=== PATIENT | female | born 1970 | race Caucasian/White ===

== ENCOUNTER 2018-03-07 21:37 | Emergency (ER) | payer OTHER ==
[2018-03-07 21:46] VITALS: RESP 18
[2018-03-07] MEDS ORDERED: PROPARACAINE 0.5% OPHTH DROPS 15 ML BTL RIGHT EYE STA (22:07)
--- NOTE | 2018-03-07 22:49 | ED ---
Eye Problem HPI - General Chief complaint: Eye Problems Stated complaint: eye pain/discharge Time Seen by Provider: 03/07/18 21:57 Source: patient Mode of arrival: ambulatory Limitations: no limitations - History of Present Illness Initial comments: 48-year-old female patient presents to the emergency department today for evaluation of right eye pain and redness. Patient states the pain started approximately 3 hours [place] Patient states that as time went on the pain became worse and she developed redness to the right lateral aspect of the eye. Patient denies getting anything in the eye or any chemical exposure. Patient states he does not feel like foreign body sensation, states it is an aching throbbing pain. Patient denies any history of similar symptoms. She denies any blurred vision, double vision, floaters, or flashes of light. Patient denies any significant past medical history other than chronic back pain. Denies any fevers or chills. Patient denies any recent rash , fever, chills, shortness breath, chest pain, abdominal pain, nausea, vomiting , diarrhea, constipation, back pain, numbness, tingling, dizziness, weakness, hematuria, dysuria, urinary urgency, urinary frequency, headache, visual changes , or any other complaints. - Related Data Home Medications Medication Instructions Recorded Confirmed HYDROcodone/APAP 5-325MG [[place] 1 tab PO Q6HR PRN 03/07/18 03/07/18 5-325] Methocarbamol [Robaxin-750] 750 mg PO BID PRN 03/07/18 03/07/18 Allergies Allergy/AdvReac Type Severity Reaction Status Date / Time Penicillins Allergy Dyspnea Verified 03/07/18 22:26 Review of Systems ROS Statement: Those systems with pertinent positive or pertinent negative responses have been documented in the HPI. ROS Other: All systems not noted in ROS Statement are negative. Past Medical History Past Medical History: No Reported History History of Any Multi-Drug Resistant Organisms: None Reported Past Surgical History: Section, Cholecystectomy, Tubal Ligation Additional Past Surgical History / Comment(s): spinal fusion-cervical spine Past Psychological History: No Psychological Hx Reported Smoking Status: Current every day smoker Past Alcohol Use History: None Reported Past Drug Use History: None Reported - Past Family History Mother Family Medical History: Chest Pain / Angina General Exam Limitations: no limitations General appearance: alert, in no apparent distress, other (This is a well- developed, well-nourished adult female patient in no acute distress. Vital signs upon presentation are temperature 99.1F, pulse 105, respirations 18, blood pressure 177/96, pulse ox 98% on room air.) Eye exam: Present: PERRL, EOMI, conjunctival injection (Right sided), other ( Patient has right sided conjunctival injection around three o'clock. No drainage noted. Pupil is equal, round, reactive. No hyphema. Conjunctival abrasion noted with fluoroscein stain to 3 O' Clock region of the eye. No corneal abnormalities noted. No foreign body noted with eversion of the lids. ) . Absent: normal appearance, scleral icterus, periorbital swelling ENT exam: Present: normal exam, normal oropharynx Respiratory exam: Present: normal lung sounds bilaterally. Absent: respiratory distress, wheezes, rales, rhonchi, stridor Cardiovascular Exam: Present: regular rate, normal rhythm, normal heart sounds. Absent: systolic murmur, diastolic murmur, rubs, gallop, clicks Neurological exam: Present: alert, oriented X3, CN II-XII intact Psychiatric exam: Present: normal affect, normal mood Skin exam: Present: warm, dry, intact, normal color. Absent: rash Course Vital Signs 03/07/18 21:43 Temperature 99.1 F Pulse Rate 105 H Respiratory 18 Rate Blood Pressure 177/96 O2 Sat by Pulse 98 Oximetry Medical Decision Making - Medical Decision Making 48-year-old female patient presented to the emergency department today for evaluation of right eye discomfort and redness. Physical examination was performed, there was conjunctival injection noted to the right lateral aspect of the globe at approximately 3:00. No pupil abnormalities were identified. Fluorescein stain with Wood's lamp examination was performed and did show abrasion to the right conjunctiva. Patient will be given tobramycin drops. Pressure in the right eye was between 12 and 13 mmHg. She is instructed to follow-up with impregnator and drier if her symptoms do not improve over the next 1-2 days. Return parameters discussed in detail. She verbalizes understanding and agrees with this plan. Disposition Clinical Impression: Abrasion of right conjunctiva Disposition: HOME SELF-CARE Condition: Good Instructions: Tobramycin (Into the eye), Corneal Abrasion (ED) Additional Instructions: Use drops to the right eye one drop 4 times daily while awake. If symptoms aren 't improving over the next 1-2 days follow-up with impregnator and drier. Return here immediately for any new, worsening, or concerning symptoms. Is patient prescribed a controlled substance at d/c from ED?: No Referrals: Piedad Lemus MD [Primary Care Provider] - 1-2 days Dustin Kent MD [STAFF PHYSICIAN] - 1-2 days Time of Disposition: 22:53
[2018-03-07] MEDS ORDERED: TOBRAMYCIN 0.3% OPHTH DROPS 5 ML BTL RIGHT EYE STA (22:51)
[2018-03-07] MEDS ORDERED: DIPH,PERTUS(ACELL)TETVAC-LF 0.5 ML VIAL IM ONE (23:00)
[2018-03-07 23:29] VITALS: BP 142/80; PULSE 89; TEMP 98
== END 2018-03-07 23:29 | disposition home or self-care (01) ==
LOC: EC 21:37
DX: S05.01XA Injury of conjunctiva and corneal abrasion without foreign body, right eye, initial encounter (principal); F17.200 Nicotine dependence, unspecified, uncomplicated; Z88.0 Allergy status to penicillin; Z23 Encounter for immunization; Y92.832 Beach as the place of occurrence of the external cause
CPT/HCPCS: 90471; 90715; 99283

== ENCOUNTER 2018-10-28 12:39 | Emergency (ER) | payer OTHER ==
[2018-10-28 12:44] VITALS: RESP 18
--- NOTE | 2018-10-28 13:02 | ED ---
Lower Extremity Injury HPI - General Chief Complaint: Extremity Injury, Lower Stated Complaint: Knee Injury Time Seen by Provider: 10/28/18 12:50 Source: patient Mode of arrival: ambulatory (but tender) Limitations: no limitations - History of Present Illness Initial Comments: 48-year-old female presents with left knee area pain for the last week. Patient states she slipped on ice felt discomfort in the anterior portion of her knee. After a few days ago better but then 2 days ago her knee locked up. Patient states she's having pain both in the anterior and posterior left knee. Patient having pain with ambulation but still able to ambulate. Patient states she drove down to [place] and did feel better after elevating her leg in the car for the last few days. Patient was using ice as well. No previous injury. No numbness or tingling. No previous surgical history. No pain other than near the knee. No calf pain. no Chest pain or shortness of breath MD Complaint: knee injury (left knee) -: week(s) (1) Type of Injury: hyperextension Place: home Severity scale (1-10): 5 Worsens With: weight bearing, movement Context: other Associated Symptoms: swelling (mild), ambulatory Treatments Prior to Arrival: cold therapy, NSAIDS - Related Data Home Medications Medication Instructions Recorded Confirmed HYDROcodone/APAP 5-325MG [[place] 1 tab PO Q6HR PRN 03/07/18 03/07/18 5-325] Methocarbamol [Robaxin-750] 750 mg PO BID PRN 03/07/18 03/07/18 Previous Rx's Medication Instructions Recorded Ibuprofen [Motrin] 800 mg PO Q8HR PRN #30 tab 10/28/18 Allergies Allergy/AdvReac Type Severity Reaction Status Date / Time Penicillins Allergy Dyspnea Verified 10/28/18 12:44 Review of Systems ROS Statement: Those systems with pertinent positive or pertinent negative responses have been documented in the HPI. ROS Other: All systems not noted in ROS Statement are negative. Constitutional: Denies: fever Respiratory: Denies: cough Endocrine: Denies: fatigue Musculoskeletal: Reports: joint swelling (left), arthralgia (knee, left), myalgia (left knee) Neurological: Denies: weakness, numbness Past Medical History Past Medical History: No Reported History History of Any Multi-Drug Resistant Organisms: None Reported Past Surgical History: Section, Cholecystectomy, Tubal Ligation Additional Past Surgical History / Comment(s): spinal fusion-cervical spine Past Psychological History: No Psychological Hx Reported Smoking Status: Current every day smoker Past Alcohol Use History: None Reported Past Drug Use History: None Reported - Past Family History Mother Family Medical History: Chest Pain / Angina General Exam Limitations: no limitations General appearance: alert, in no apparent distress Respiratory exam: Present: normal lung sounds bilaterally. Absent: respiratory distress, wheezes, rales, rhonchi, stridor Cardiovascular Exam: Present: regular rate, normal rhythm, normal heart sounds. Absent: systolic murmur, diastolic murmur, rubs, gallop, clicks Left Hip exam: Present: normal inspection, full ROM. Absent: tenderness, swelling Upper Leg exam: Present: normal inspection, full ROM. Absent: tenderness, swelling Knee exam: Present: normal inspection, tenderness, swelling. Absent: full ROM ( painful flexion) Lower Leg exam: Present: normal inspection, full ROM. Absent: tenderness, swelling Ankle exam: Present: normal inspection, full ROM. Absent: tenderness, swelling Foot/Toe exam: Present: normal inspection, full ROM. Absent: tenderness, swelling Neurovascular tendon exam: Present: no vascular compromise Gait: observed and limited by pain Course Vital Signs 10/28/18 12:42 Temperature 98.0 F Pulse Rate 100 Respiratory 18 Rate Blood Pressure 141/91 O2 Sat by Pulse 100 Oximetry Medical Decision Making - Medical Decision Making reviewed x-rays and Doppler is negative for any acute fracture or dislocation. No evidence of DVT. Patient aware we'll given knee immobilizer along with anti- inflammatories. Patient have close follow-up with litigation specialist. Patient return if symptoms progress or worsen. Disposition Clinical Impression: Strain of knee and leg, left Disposition: HOME SELF-CARE Condition: Good Instructions (If sedation given, give patient instructions): Knee Sprain (ED), Knee Pain (ED) Prescriptions: Ibuprofen [Motrin] 800 mg PO Q8HR PRN #30 tab PRN Reason: Pain Is patient prescribed a controlled substance at d/c from ED?: No Referrals: Piedad Lemus MD [Primary Care Provider] - 1-2 days Benny Brown DO [Medical Doctor] - 1-2 days Time of Disposition: 14:02
--- NOTE | 2018-10-28 13:12 | XR ---
EXAMINATION TYPE: XR knee complete LT DATE OF EXAM: 10/28/2018 CLINICAL HISTORY: Knee pain TECHNIQUE: Three views of the left knee are obtained. COMPARISON: None. FINDINGS: There is no acute fracture/dislocation evident . The tri-compartment joint spaces appear within normal limits. The overlying soft tissue appears unremarkable. IMPRESSION: There is no acute fracture or dislocation.
--- NOTE | 2018-10-28 13:47 | US ---
EXAMINATION TYPE: US venous doppler duplex LE LT DATE OF EXAM: 10/28/2018 1:32 PM COMPARISON: NONE CLINICAL HISTORY: Pain. Slipped on ice, knee pain, no hx of blood clots or on blood thinners SIDE PERFORMED: Left TECHNIQUE: The lower extremity deep venous system is examined utilizing real time linear array sonog grabiel with graded compression, doppler sonography and color-flow sonography. VESSELS IMAGED: External Iliac Vein (EIV) Common Femoral Vein Deep Femoral Vein Greater Saphenous Vein * Femoral Vein Popliteal Vein Small Saphenous Vein * Proximal Calf Veins (* superficial vessels) IMPRESSION: Left Leg: Negative for DVT
[2018-10-28 14:25] VITALS: BP 140/82; PULSE 82; TEMP 97.2
== END 2018-10-28 14:23 | disposition home or self-care (01) ==
LOC: EC 12:39
DX: S86.811A Strain of other muscle(s) and tendon(s) at lower leg level, right leg, initial encounter (principal); F17.200 Nicotine dependence, unspecified, uncomplicated; Z88.0 Allergy status to penicillin; W00.0XXA Fall on same level due to ice and snow, initial encounter; Y92.009 Unspecified place in unspecified non-institutional (private) residence as the place of occurrence of the external cause
CPT/HCPCS: 73562; 93971; 99284; L1830 ×2

== ENCOUNTER → 2018-12-18 | Outpatient (CLI) | payer OTHER ==
--- NOTE | 2018-12-20 14:43 | MM ---
Reason for exam: screening (asymptomatic). Last mammogram was performed 3 years ago. History: Family history of breast cancer in paternal grandmother. Physical Findings: A clinical breast exam by your physician is recommended on an annual basis and results should be correlated with mammographic findings. MG 3D Screening Mammo W/Cad Bilateral CC and MLO view(s) were taken. Prior study comparison: December 15, 2015, bilateral MG diagnostic mammo w CAD JERRY. December 13, 2014, right breast MG work up mamm w CAD RT. There are scattered fibroglandular densities. Finding: There is a new 6 mm equal density (isodense), circumscribed oval mass in the posterior position of the left breast on MLO view, may be new lymph node. New finding since December 15, 2015 and December 13, 2014. ASSESSMENT: Incomplete: need additional imaging evaluation, BI-RAD 0 RECOMMENDATION: Special view mammogram of the left breast. If lesion persists on supplemental views, image directed ultrasound is recommended. [facility] will attempt to contact patient to return for supplemental views and ultrasound if indicated.
== END | disposition home or self-care (01) ==
LOC: RADMAMWWP 11:54
PROVIDERS: ATTEND Family Medicine
DX: Z12.31 Encounter for screening mammogram for malignant neoplasm of breast (principal)
CPT/HCPCS: 77063; 77067

== ENCOUNTER → 2018-12-26 | Outpatient (CLI) | payer OTHER ==
--- NOTE | 2018-12-26 14:43 | MM ---
Reason for exam: additional evaluation requested from abnormal screening. Last mammogram was performed less than 1 month ago. History: Family history of breast cancer in paternal grandmother. Physical Findings: Nurse did not find any significant physical abnormalities on exam. MG 3D Work Up W/Cad LT MLO with magnification, LM, and XCCL view(s) were taken of the left breast. Prior study comparison: December 18, 2018, bilateral MG 3d screening mammo w/cad. December 15, 2015, bilateral MG diagnostic mammo w CAD JERRY. Nodule persits 17cm from nipple at 3 o'clock left breast. These results were verbally communicated with the patient and result sheet given to the patient on 12/26/18. ASSESSMENT: Incomplete: need additional imaging evaluation, BI-RAD 0 RECOMMENDATION: Ultrasound of the left breast.
--- NOTE | 2018-12-26 14:44 | USB ---
Reason for exam: additional evaluation requested from abnormal screening. History: Family history of breast cancer in paternal grandmother. US Breast Workup Limited LT Left limited breast ultrasound including focal area of concern, retroareolar and axilla demonstrates a 0.4 x 0.5 x 0.4cm oval, lymph node appearance at 3 o'clock. These results were verbally communicated with the patient and result sheet given to the patient on 12/26/18. ASSESSMENT: Benign, BI-RAD 2 RECOMMENDATION: Return to routine screening mammogram schedule for both breasts.
== END | disposition home or self-care (01) ==
LOC: RADMAMWWP 13:08
PROVIDERS: ATTEND Family Medicine
DX: R92.8 Other abnormal and inconclusive findings on diagnostic imaging of breast (principal)
CPT/HCPCS: 77065; 76642; G0279; 77061

== ENCOUNTER 2019-10-19 21:27 | Emergency (ER) | payer OTHER ==
[2019-10-19 21:41] VITALS: RESP 18
[2019-10-19] MEDS ORDERED: DIAZEPAM 5 MG/ML 2 ML INJ IVP STA (21:49)
[2019-10-19] MEDS ORDERED: KETOROLAC 30 MG/ML 1 ML VIAL IVP STA (21:49)
[2019-10-19] MEDS ORDERED: SODIUM CHLORIDE 0.9% 500 ML 500 ML IV ONE (21:49)
[2019-10-19 22:12] LABS: Basophils # (A) 0.2 k/uL (0-0.2); Basophils % (A) 1 %; Eosinophils # (A) 0.2 k/uL (0-0.7); Eosinophils % (A) 2 %; HCT 44.6 % (34.0-46.0); HGB 14.7 gm/dL (11.4-16.0); Lymphocytes # (A) 2.8 k/uL (1.0-4.8); Lymphocytes % (A) 21 %; MCH 30.8 pg (25.0-35.0); MCHC 32.9 g/dL (31.0-37.0); MCV 93.6 fL (80.0-100.0); Monocytes # (A) 0.7 k/uL (0-1.0); Monocytes % (A) 5 %; Neutrophils # (A) 9.4 k/uL (1.3-7.7); Neutrophils % (A) 70 %; Platelet Count 405 k/uL (150-450); RBC 4.77 m/uL (3.80-5.40); WBC 13.4 k/uL (3.8-10.6)
[2019-10-19 22:16] LABS: Appearance,Urine Cloudy (Clear); Bilirubin,Urine Negative (Negative); Blood,Urine Negative (Negative); Color,Urine Yellow; Glucose,Urine (UA) Negative (Negative); Hyaline Casts,Urine 172 /lpf (0-2); Ketones,Urine 1+ (Negative); Leukocyte Esterase,Urine Negative (Negative); Mucus,Urine Many /hpf; Nitrite,Urine Negative (Negative); PH, Urine 5.5 (5.0-8.0); Protein,Urine 1+ (Negative); RBC,Urine 2 /hpf (0-5); Specific Gravity,Urine 1.031 (1.001-1.035); Squamous Epithelial Cell,Urine 8 /hpf (0-4); WBC,Urine 5 /hpf (0-5)
[2019-10-19 22:22] LABS: ALT 17 U/L (4-34); AST 26 U/L (14-36); African American GFR (CKD) >90 (>60 ml/min/1.73 sqM); Albumin 4.4 g/dL (3.5-5.0); Alkaline Phosphatase 100 U/L (38-126); Anion Gap 10 mmol/L; Blood Urea Nitrogen 13 mg/dL (7-17); Calcium 9.5 mg/dL (8.4-10.2); Carbon Dioxide 20 mmol/L (22-30); Chloride 106 mmol/L (98-107); Glucose 107 mg/dL (74-99); Non-African American GFR(CKD) >90 (>60 ml/min/1.73 sqM); Potassium 4.3 mmol/L (3.5-5.1); Sodium 136 mmol/L (137-145); Total Bilirubin 0.6 mg/dL (0.2-1.3); Total Protein 7.3 g/dL (6.3-8.2)
[2019-10-19 22:29] LABS: INR 0.9 (<1.2); Partial Thromboplastin Time 23.1 sec (22.0-30.0); Prothrombin Time 9.5 sec (9.0-12.0)
--- NOTE | 2019-10-19 22:30 | XR ---
EXAMINATION TYPE: XR chest 2V DATE OF EXAM: 10/19/2019 COMPARISON: 10/12/2015 HISTORY: Back pain TECHNIQUE: FINDINGS: Heart and mediastinum are normal. Lungs are clear. Diaphragm is normal. Bony thorax appears normal. IMPRESSION: Normal chest.
[2019-10-19 22:40] LABS: D-Dimer 2.39 mg/L FEU (<0.60)
[2019-10-19] MEDS ORDERED: HYDROmorphone 1 MG/ML 1 ML SYRINGE IVP STA (22:55)
--- NOTE | 2019-10-19 23:15 | ED ---
General Adult HPI - General Chief complaint: Back Pain/Injury Stated complaint: back pain Time Seen by Provider: 10/19/19 21:42 Source: patient Mode of arrival: ambulatory - History of Present Illness Initial comments: 49-year-old female patient presents to the emergency department today for evaluation of right mid back pain. Patient states the pain started about a week ago. States it has been worsening. States she has been taking her home naproxen and Flexeril without relief. Patient states the pain worsens when she takes a deep breath. States that sometimes it hurts worse with movement but sometimes it doesn't. She denies any fever or chills. States she does have a chronic cough with mild sputum production. States she is a smoker. She denies any known injury. Denies history of similar symptoms. She does have chronic low back pain and a lumbar fusion but states this is completely different from her usual pain. Denies any numbness or tingling to the extremities. Denies any hematuria, dysuria, urinary frequency, or urinary urgency. Patient denies any re cent rash, chest pain, abdominal pain, nausea, vomiting, diarrhea, constipation, dizziness, weakness, hematuria, dysuria, urinary urgency, urinary frequency, headache, visual changes, or any other complaints. - Related Data Home Medications Medication Instructions Recorded Confirmed HYDROcodone/APAP 5-325MG [[place] 1 tab PO Q6HR PRN 03/07/18 03/07/18 5-325] Methocarbamol [Robaxin-750] 750 mg PO BID PRN 03/07/18 03/07/18 Previous Rx's Medication Instructions Recorded Ibuprofen [Motrin] 800 mg PO Q8HR PRN #30 tab 10/28/18 Diazepam [Valium] 5 mg PO TID PRN 3 Days #9 tab 10/19/19 Ibuprofen [Motrin] 600 mg PO Q8HR PRN #30 tab 10/19/19 Lidocaine 5% Patch [Lidoderm] 1 patch TOPICAL DAILY #30 patch 10/19/19 Allergies Allergy/AdvReac Type Severity Reaction Status Date / Time Penicillins Allergy Dyspnea Verified 10/28/18 12:44 Review of Systems ROS Statement: Those systems with pertinent positive or pertinent negative responses have been documented in the HPI. ROS Other: All systems not noted in ROS Statement are negative. Past Medical History Past Medical History: Hypertension History of Any Multi-Drug Resistant Organisms: None Reported Past Surgical History: Section, Cholecystectomy, Tubal Ligation Additional Past Surgical History / Comment(s): spinal fusion-cervical spine Past Psychological History: Anxiety Smoking Status: Current every day smoker Past Alcohol Use History: None Reported Past Drug Use History: None Reported - Past Family History Mother Family Medical History: Chest Pain / Angina General Exam General appearance: alert, in no apparent distress, other (This is a well- developed, well-nourished adult female patient in mild distress related to pain. Vital signs upon presentation are temperature 97.9F, pulse 119, respirations 18, blood pressure 140/92, pulse ox 99% on room air.) Eye exam: Present: normal appearance, PERRL, EOMI. Absent: scleral icterus, conjunctival injection, periorbital swelling ENT exam: Present: normal exam, normal oropharynx, mucous membranes moist Respiratory exam: Present: normal lung sounds bilaterally. Absent: respiratory distress, wheezes, rales, rhonchi, stridor Cardiovascular Exam: Present: normal rhythm, tachycardia, normal heart sounds. Absent: systolic murmur, diastolic murmur, rubs, gallop, clicks GI/Abdominal exam: Present: soft, normal bowel sounds. Absent: distended, tenderness, guarding, rebound, rigid Back exam: Present: normal inspection, tenderness (Right mid back tenderness, over the ribs.). Absent: vertebral tenderness Neurological exam: Present: alert, oriented X3, CN II-XII intact Psychiatric exam: Present: normal affect, normal mood Skin exam: Present: warm, dry, intact, normal color. Absent: rash Course Vital Signs 10/19/19 10/19/19 21:37 23:58 Temperature 97.9 F 98 F Pulse Rate 119 H 83 Respiratory 18 18 Rate Blood Pressure 140/92 136/93 O2 Sat by Pulse 99 99 Oximetry EKG Findings - EKG Comments: EKG Findings:: EKG obtained at 2222 shows normal sinus rhythm with a ventricular rate of 96, OH interval 156, QRS duration 82, QT 346, QTc 437. No evidence of ST elevation or depression. Medical Decision Making - Medical Decision Making 49-year-old female patient percents to the emergency department today for evaluation of right sided middle back pain. Physical examination did reveal tenderness over the area. Abdomen was soft and nontender. Patient was tachycardic upon arrival. Labs reviewed and revealed elevated d-dimer at 2.39. CT angiography of the chest was obtained to rule out PE, no evidence of pulmonary embolism, bony destruction the thoracic spine, or other abnormalities. EKG shows no abnormalities. Patient was given pain medication here in the [facility]. Upon reevaluation patient is reveal feeling better. She'll be discharged home with prescription for Valium, ibuprofen, and Lidoderm patch. She is instructed follow-up with her primary care physician for recheck in 1-2 days. Return parameters were discussed in detail. She verbalizes understanding and agrees with this plan. - Lab Data Result diagrams: 10/19/19 21:59 10/19/19 21:59 Lab Results 10/19/19 10/19/19 10/19/19 Range/Units 21:59 21:59 21:59 WBC 13.4 H (3.8-10.6) k/uL RBC 4.77 (3.80-5.40) m/uL Hgb 14.7 (11.4-16.0) gm/dL Hct 44.6 (34.0-46.0) % MCV 93.6 (80.0-100.0) fL MCH 30.8 (25.0-35.0) pg MCHC 32.9 (31.0-37.0) g/dL RDW 13.0 (11.5-15.5) % Plt Count 405 (150-450) k/uL Neutrophils % 70 % Lymphocytes % 21 % Monocytes % 5 % Eosinophils % 2 % Basophils % 1 % Neutrophils # 9.4 H (1.3-7.7) k/uL Lymphocytes # 2.8 (1.0-4.8) k/uL Monocytes # 0.7 (0-1.0) k/uL Eosinophils # 0.2 (0-0.7) k/uL Basophils # 0.2 (0-0.2) k/uL PT 9.5 (9.0-12.0) sec INR 0.9 (<1.2) APTT 23.1 (22.0-30.0) sec D-Dimer 2.39 H (<0.60) mg/L FEU Sodium 136 L (137-145) mmol/L Potassium 4.3 (3.5-5.1) mmol/L Chloride 106 (98-107) mmol/L Carbon Dioxide 20 L (22-30) mmol/L Anion Gap 10 mmol/L BUN 13 (7-17) mg/dL Creatinine 0.76 (0.52-1.04) mg/dL Est GFR (CKD-EPI)AfAm >90 (>60 ml/min/1.73 sqM) Est GFR (CKD-EPI)NonAf >90 (>60 ml/min/1.73 sqM) Glucose 107 H (74-99) mg/dL Plasma Lactic Acid [place] (0.7-2.0) mmol/L Calcium 9.5 (8.4-10.2) mg/dL Total Bilirubin 0.6 (0.2-1.3) mg/dL AST 26 (14-36) U/L ALT 17 (4-34) U/L Alkaline Phosphatase 100 (38-126) U/L Troponin I (0.000-0.034) ng/mL Total Protein 7.3 (6.3-8.2) g/dL Albumin 4.4 (3.5-5.0) g/dL Urine Color Urine Appearance (Clear) Urine pH (5.0-8.0) Ur Specific [place] (1.001-1.035) Urine Protein (Negative) Urine Glucose (UA) (Negative) Urine Ketones (Negative) Urine Blood (Negative) Urine Nitrite (Negative) Urine Bilirubin (Negative) Urine Urobilinogen (<2.0) mg/dL Ur Leukocyte Esterase (Negative) Urine RBC (0-5) /hpf Urine WBC (0-5) /hpf Ur Squamous Epith Cells (0-4) /hpf Hyaline Casts (0-2) /lpf Urine Mucus (None) /hpf 10/19/19 10/19/19 10/19/19 Range/Units 21:59 21:59 21:59 WBC (3.8-10.6) k/uL RBC (3.80-5.40) m/uL Hgb (11.4-16.0) gm/dL Hct (34.0-46.0) % MCV (80.0-100.0) fL MCH (25.0-35.0) pg MCHC (31.0-37.0) g/dL RDW (11.5-15.5) % Plt Count (150-450) k/uL Neutrophils % % Lymphocytes % % Monocytes % % Eosinophils % % Basophils % % Neutrophils # (1.3-7.7) k/uL Lymphocytes # (1.0-4.8) k/uL Monocytes # (0-1.0) k/uL Eosinophils # (0-0.7) k/uL Basophils # (0-0.2) k/uL PT (9.0-12.0) sec INR (<1.2) APTT (22.0-30.0) sec D-Dimer (<0.60) mg/L FEU Sodium (137-145) mmol/L Potassium (3.5-5.1) mmol/L Chloride (98-107) mmol/L Carbon Dioxide (22-30) mmol/L Anion Gap mmol/L BUN (7-17) mg/dL Creatinine (0.52-1.04) mg/dL Est GFR (CKD-EPI)AfAm (>60 ml/min/1.73 sqM) Est GFR (CKD-EPI)NonAf (>60 ml/min/1.73 sqM) Glucose (74-99) mg/dL Plasma Lactic Acid [place] 0.8 (0.7-2.0) mmol/L Calcium (8.4-10.2) mg/dL Total Bilirubin (0.2-1.3) mg/dL AST (14-36) U/L ALT (4-34) U/L Alkaline Phosphatase (38-126) U/L Troponin I <0.012 (0.000-0.034) ng/mL Total Protein (6.3-8.2) g/dL Albumin (3.5-5.0) g/dL Urine Color Yellow Urine Appearance Cloudy H (Clear) Urine pH 5.5 (5.0-8.0) Ur Specific [place] 1.031 (1.001-1.035) Urine Protein 1+ H (Negative) Urine Glucose (UA) Negative (Negative) Urine Ketones 1+ H (Negative) Urine Blood Negative (Negative) Urine Nitrite Negative (Negative) Urine Bilirubin Negative (Negative) Urine Urobilinogen 4.0 (<2.0) mg/dL Ur Leukocyte Esterase Negative (Negative) Urine RBC 2 (0-5) /hpf Urine WBC 5 (0-5) /hpf Ur Squamous Epith Cells 8 H (0-4) /hpf Hyaline Casts 172 H (0-2) /lpf Urine Mucus Many H (None) /hpf - Radiology Data Radiology results: report reviewed, image reviewed Two-view x-ray of the chest was obtained. Report was reviewed in its entirety. Impression by Dr. Vasquez shows normal chest. CT chest angiography for PE is obtained. Report reviewed in its entirety. Impression by Dr. Vasquez shows negative exam. No evidence for pulmonary embolism. Disposition Clinical Impression: Muscle spasm of back, Back pain Disposition: HOME SELF-CARE Condition: Good Instructions (If sedation given, give patient instructions): Muscle Spasm (ED), Back Pain (ED) Additional Instructions: Take medications as directed. Follow-up with your primary care physician for recheck in 1-2 days. Return to the emergency department immediately for any new, worsening, or concerning symptoms. Prescriptions: Lidocaine 5% Patch [Lidoderm] 1 patch TOPICAL DAILY #30 patch Ibuprofen [Motrin] 600 mg PO Q8HR PRN #30 tab PRN Reason: Pain Diazepam [Valium] 5 mg PO TID PRN 3 Days #9 tab PRN Reason: Muscle Spasm Is patient prescribed a controlled substance at d/c from ED?: No Referrals: Piedad Lemus MD [Primary Care Provider] - 1-2 days Time of Disposition: 23:47
--- NOTE | 2019-10-19 23:21 | CT ---
EXAMINATION TYPE: CT chest angio for PE DATE OF EXAM: 10/19/2019 COMPARISON: None HISTORY: R/O PE, R/O AAA CT DLP: 713.90 mGycm Automated exposure control for dose reduction was used. CONTRAST: Performed with IV Contrast, patient injected with 55 mL of Isovue 370. There are 3-D post processed images. There is no mediastinal adenopathy. Thoracic aorta is intact without evidence of aneurysm or dissecti on. There are no hilar masses. Heart size is normal. There is no pericardial effusion. There is no pleural effusion or pneumothorax. There is normal contrast opacification of the pulmonary arteries. There are no filling defects. The r ibs and thoracic spine appear intact. There is minor spurring in the lower thoracic spine. I see no f ocal bone destruction. IMPRESSION: Negative exam. No evidence of pulmonary embolism.
[2019-10-19] MEDS ORDERED: LIDOCAINE 5% PATCH TOPICAL STA (23:46)
[2019-10-19 23:59] VITALS: BP 136/93; PULSE 83; TEMP 98
== END 2019-10-20 00:07 | disposition home or self-care (01) ==
LOC: EC 21:27
DX: M62.830 Muscle spasm of back (principal); R79.1 Abnormal coagulation profile; R00.0 Tachycardia, unspecified; R05 Cough; F17.200 Nicotine dependence, unspecified, uncomplicated; Z88.0 Allergy status to penicillin; Z98.1 Arthrodesis status; Z82.49 Family history of ischemic heart disease and other diseases of the circulatory system
CPT/HCPCS: 36415; 93005; 85379; 80053; 83605; 84484; 85025; 85610; 85730; 81001; 71046; 71275; 99284; 96374; 96375 ×2; 96361; J3360; J1885; J1170; Q9967

== ENCOUNTER 2023-12-16 10:57 | Emergency (ER) | payer OTHER ==
--- NOTE | 2023-12-16 11:57 | ED ---
General Adult HPI - General Chief complaint: Extremity Injury, Lower Stated complaint: Knee pain Time Seen by Provider: 12/16/23 11:30 Source: patient, RN notes reviewed Mode of arrival: ambulatory Limitations: no limitations - History of Present Illness Initial comments: 53-year-old female presenting with left knee pain x 2 days. States she has pain with weight bearing and extension of knee with no known injury or trauma. She admits pain on the anterior knee as well as the popliteal space. She admits recent travel on a airplane 3 weeks ago and she is a current tobacco smoker. Denies history of DVT. She is not on blood thinners. States she feels as though her left knee is swollen. - Related Data Home Medications Medication Instructions Recorded Confirmed HYDROcodone/APAP 5-325MG [[place] 1 tab PO Q6HR PRN 03/07/18 03/07/18 5-325] methocarbamoL [Robaxin-750] 750 mg PO BID PRN 03/07/18 03/07/18 Previous Rx's Medication Instructions Recorded Ibuprofen [Motrin] 800 mg PO Q8HR PRN #30 tab 10/28/18 Ibuprofen [Motrin] 600 mg PO Q8HR PRN #30 tab 10/19/19 Lidocaine 5% Patch [Lidoderm] 1 patch TOPICAL DAILY #30 patch 10/19/19 diazePAM [Valium] 5 mg PO TID PRN 3 Days #9 tab 10/19/19 Allergies Allergy/AdvReac Type Severity Reaction Status Date / Time Penicillins Allergy Dyspnea Verified 12/16/23 11:07 Review of Systems ROS Statement: Those systems with pertinent positive or pertinent negative responses have been documented in the HPI. ROS Other: All systems not noted in ROS Statement are negative. Past Medical History Past Medical History: Hypertension History of Any Multi-Drug Resistant Organisms: None Reported Past Surgical History: Section, Cholecystectomy, Tubal Ligation Additional Past Surgical History / Comment(s): spinal fusion-cervical spine Past Psychological History: Anxiety Smoking Status: Current every day smoker Past Alcohol Use History: None Reported Past Drug Use History: None Reported - Past Family History Mother Family Medical History: Chest Pain / Angina General Exam Limitations: no limitations General appearance: alert, in no apparent distress Respiratory exam: Present: normal lung sounds bilaterally. Absent: respiratory distress, wheezes, rales, rhonchi, stridor Cardiovascular Exam: Present: regular rate, normal rhythm, normal heart sounds. Absent: systolic murmur, diastolic murmur, rubs, gallop, clicks Extremities exam: Present: normal inspection, full ROM, tenderness (Diffuse tenderness to palpation over anterior aspect of the knee as well as popliteal space. No skin changes, erythema or edema.), normal capillary refill, other (Full sensation of bilateral lower extremities. Negative valgus and varus testing. Negative anterior and posterior drawer.). Absent: calf tenderness Course Vital Signs 12/16/23 12/16/23 11:05 12:27 Temperature 97.9 F 98.4 F Pulse Rate 78 78 Respiratory 20 Rate Blood Pressure 157/103 O2 Sat by Pulse 98 98 Oximetry Medical Decision Making - Medical Decision Making Was pt. sent in by a medical professional or institution (KENN Galdamez, SECURITY SYSTEMS ADMINISTRATOR, urgent care, hospital, or group home...) When possible be specific @ -No Did you speak to anyone other than the patient for history (EMS, parent, family, police, friend...)? What history was obtained from this source @ -No Did you review nursing and triage notes (agree or disagree)? Why? @ -I reviewed and agree with nursing and triage notes Were old charts reviewed (outside hosp., previous admission, EMS record, old EKG, old radiological studies, urgent care reports/EKG's, group home records)? Report findings @ -No old charts were reviewed Differential Diagnosis (chest pain, altered mental status, abdominal pain women, abdominal pain men, vaginal bleeding, weakness, fever, dyspnea, syncope, headache, dizziness, GI bleed, back pain, seizure, CVA, palpatations, mental health, musculoskeletal)? @ -Differential Musculoskeletal Muscular strain, contusion, ligament sprain, fracture, arthritis, septic arthritis, bursitis, cellulitis, muscle spasm, nerve compression, DVT, arterial occlusion, herpes zoster, electrolyte abnormality, tumor.... This is not meant to be in all inclusive list EKG interpreted by me (3pts min.). @ -None X-rays interpreted by me (1pt min.). @ -Left knee: no acute fracture, moderate osteoarthritis CT interpreted by me (1pt min.). @ -None done U/S interpreted by me (1pt. min.). @ -Left popliteal cyst measuring 3.2 cm, negative for DVT What testing was considered but not performed or refused? (CT, X-rays, U/S, labs)? Why? @ -None What meds were considered but not given or refused? Why? @ -None Did you discuss the management of the patient with other professionals (professionals i.e. , PA, SECURITY SYSTEMS ADMINISTRATOR, lab, RT, psych nurse, social worker delinquency prevention, finish machine tender, teacher, gunnery/ordnance officer, wrapper caser)? Give summary @ -No Was smoking cessation discussed for >3mins.? @ -No Was critical care preformed (if so, how long)? @ -No Were there social determinants of health that impacted care today? How? (Homelessness, low income, unemployed, alcoholism, drug addiction, tr ansportation, low edu. Level, literacy, decrease access to med. care, snf, rehab)? @ -No Was there de-escalation of care discussed even if they declined (Discuss DNR or withdrawal of care, Hospice)? DNR status @ -No What co-morbidities impacted this encounter? (DM, HTN, Smoking, COPD, CAD, Cancer, CVA, ARF, Chemo, Hep., AIDS, mental health diagnosis, sleep apnea, morbid obesity)? @ -None Was patient admitted / discharged? Hospital course, mention meds given and route, prescriptions, significant lab abnormalities, going to OR and other pertinent info. @ -Patient was discharged. Patient was seen and evaluated for left knee pain. X-ray revealed moderate osteoarthritis. Ultrasound performed due to history of recent travel and patient is current smoker, revealed popliteal cyst measuring 3.2 cm, negative for DVT. Diagnosis of popliteal cyst discussed with patient. Patient discharged in stable condition. Discussed case with Dr. Marsh. Undiagnosed new problem with uncertain prognosis? @ -No Drug Therapy requiring intensive monitoring for toxicity (Heparin, Nitro, Insulin, Cardizem)? @ -No Were any procedures done? @ -No Diagnosis/symptom? @ -Left Rodrigues's cyst Acute, or Chronic, or Acute on Chronic? @ -Acute Uncomplicated (without systemic symptoms) or Complicated (systemic symptoms)? @ -Uncomplicated Side effects of treatment? @ -No Exacerbation, Progression, or Severe Exacerbation? @ -No Poses a threat to life or bodily function? How? (Chest pain, [place], [place], pneumonia, PE, COPD, DKA, ARF, appy, cholecystitis, CVA, Diverticulitis, Homicidal, Suicidal, threat to staff... and all critical care pts) @ -No Disposition Clinical Impression: Rodrigues cyst Disposition: HOME SELF-CARE Condition: Stable Instructions (If sedation given, give patient instructions): Rodrigues Cyst (ED) Is patient prescribed a controlled substance at d/c from ED?: No Referrals: Rahul Buenrostro MD [Primary Care Provider] - 1-2 days Time of Disposition: 14:04
--- NOTE | 2023-12-16 12:20 | XR ---
EXAMINATION TYPE: XR knee complete LT DATE OF EXAM: 12/16/2023 COMPARISON: 10/28/2018 HISTORY: Pain TECHNIQUE: Three views are submitted. FINDINGS: Moderate to severe medial compartment patellofemoral compartment narrowing with marginal spurring. Mi ld generalized demineralization.. Osseous structures are intact. No acute fracture seen. IMPRESSION: 1. Moderate to severe osteoarthritis..
--- NOTE | 2023-12-16 13:29 | US ---
EXAMINATION TYPE: US venous doppler duplex LE LT DATE OF EXAM: 12/16/2023 1:20 PM COMPARISON: NONE CLINICAL INDICATION: Female, 53 years old with history of left knee pain; SIDE PERFORMED: Left TECHNIQUE: The lower extremity deep venous system is examined utilizing real time linear array sonog grabiel with graded compression, doppler sonography and color-flow sonography. VESSELS IMAGED: Common Femoral Vein Deep Femoral Vein Greater Saphenous Vein * Femoral Vein Popliteal Vein Small Saphenous Vein * Proximal Calf Veins (* superficial vessels) Right Leg: NA Left Leg: Negative for DVT there is a popliteal fossa cyst measuring 3.2 cm. IMPRESSION: 1. No evidence of DVT. 2. Small popliteal fossa cyst measuring 3.2 cm.
[2023-12-16 14:21] VITALS: BP 124/72; RESP 18
[2023-12-16 14:22] VITALS: PULSE 74; TEMP 98.1
== END 2023-12-16 14:14 | disposition home or self-care (01) ==
LOC: EC 10:57
DX: M17.12 Unilateral primary osteoarthritis, left knee (principal); F17.200 Nicotine dependence, unspecified, uncomplicated; Z88.0 Allergy status to penicillin
CPT/HCPCS: 99284

== ENCOUNTER → 2024-09-26 | Outpatient (CLI) | payer OTHER ==
--- NOTE | 2024-09-26 17:47 | MM ---
Reason for Exam: Screening (asymptomatic). Last mammogram was performed 5 year(s) and 9 month(s) ago. Patient History: Menarche at age 15. First Full-Term at age 22. Paternal grandmother had breast cancer. Last menstrual period: Risk Values: Mya 5 year model risk: 0.9%. NCI Lifetime model risk: 6.9%. Prior Study Comparison: 12/15/2015 Bilateral Diagnostic Mammogram, [facility]. 12/18/2018 Bilateral Screening Mammogram, [facility]. 12/26/2018 Left Diagnostic Mammogram, [facility]. Tissue Density: The breasts are almost entirely fatty. Findings: Analyzed By CAD. Low axillary tail lymph nodes redemonstrated. There is no suspicious group of microcalcifications or new suspicious mass in either breast. Overall Assessment: Benign, BI-RAD 2 Management: Screening Mammogram of both breasts in 1 year. Patient should continue monthly self-breast exams. A clinical breast exam by your physician is recommended on an annual basis. This exam should not preclude additional follow-up of suspicious palpable abnormalities. Note on Mya scores and lifetime risk: 1. A Mya score greater than 3% is considered moderate risk. If this is the case, consider specialist referral to assess eligibility for a risk reducing agent. 2. If overall lifetime risk for the development of breast cancer is 20% or higher, the patient may qualify for future screening with alternating mammogram and breast MRI. [facility], , 09/26/2024 5:44 PM. Electronically signed and approved by: Renard Hearn M.D. Radiologist
== END | disposition home or self-care (01) ==
LOC: RADMAMWWP 16:32
PROVIDERS: ATTEND Family Medicine
DX: Z12.31 Encounter for screening mammogram for malignant neoplasm of breast (principal); Z80.3 Family history of malignant neoplasm of breast; R92.313 Mammographic fatty tissue density, bilateral breasts
CPT/HCPCS: 77063; 77067